=== PATIENT | female | born 1975 | race African-American/Black ===

== ENCOUNTER 2024-11-03 11:51 | Emergency (ER) | payer SELFPAY ==
--- NOTE | ~2024-11-03 | US_ITS ---
EXAMINATION: US LOWER EXTREMITY VEINS BILATERAL HISTORY: hx clots, b/l calf pain COMPARISON: There are no prior studies available for comparison. TECHNIQUE: Duplex and color Doppler sonographic examination of the deep venous system of the bilateral lower extremities was performed. FINDINGS: The right common femoral, superficial femoral, and popliteal veins are patent demonstrating normal compressibility, spontaneous flow, and augmentation. There is a normal color and spectral Doppler waveform appearance of the visualized deep venous system above the knee. The posterior tibial and peroneal veins are patent. The left common femoral, superficial femoral, and popliteal veins are patent demonstrating normal compressibility, spontaneous flow, and augmentation. There is a normal color and spectral Doppler waveform appearance of the visualized deep venous system above the knee. The posterior tibial and peroneal veins are patent. US/US venous duplex LE BI IMPRESSION: No evidence of acute DVT in the bilateral lower extremities. Electronically signed by: Lalito Major MD 11/03/2024 01:47 PM EDT
[2024-11-03 12:10] VITALS: BP 188/102; PULSE 70; RESP 18; TEMP 36.2; O2SAT 98; BMI 30.2
--- NOTE | 2024-11-03 12:14 | ED.GENADULT ---
HPI - General Adult General Chief complaint: General Medical Stated complaint: pain in both calfs quest dvts Time Seen by Provider: 11/03/24 15:57 History of Present Illness ED Provider: ELLIOTT FAYE MD HPI narrative: This is a 49-year-old female who endorses mild dyspnea on exertion without chest pain. No cough hemoptysis or fever does not feel ill. Denies nausea vomiting. 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 She subjectively complains of calf pain but no swelling. No history of heart failure or chronic pulmonary disease described to me Related Data Allergies Allergy/AdvReac Type Severity Reaction Status Date / Time sulfamethoxazole (From AdvReac Itching Verified 11/03/24 12:13 Bactrim) trimethoprim (From Bactrim) AdvReac Itching Verified 11/03/24 12:13 PMFSH Social History Social History Smoked in Last 30 Days: No Use of substances other than those prescribed or required for medical reasons: No Advance Directives: No Advance Directives Information Provided: No Do you have a plan to hurt others: No Plan Patient : No Physical Exam ED Vital Signs: Vital Signs - 24 hr 11/03/24 12:10 11/03/24 16:55 Temperature 97.2 F 98.7 F Pulse Rate 70 66 Respiratory Rate 18 16 Blood Pressure 188/102 H 160/88 H Pulse Oximetry 98 99 Oxygen Delivery Method Room Air Room Air BMI result Body Mass Index 30.2 EXAM: Gen: Alert, awake, well appearing, well hydrated. Head: Atraumatic Eyes: Anicteric, Normal conjunctiva. ENT: Moist mucosa, no pallor. ? Neck: Supple. Skin: ?No observable rash or bruising on exposed or examined skin Respiratory: Breathing comfortably, No distress.Clear to auscultation bilaterally, symmetric chest expansion, No wheeze, rales, ronchi. Cardiovascular: Regular rate and rhythm. No murmurs or rub. Well perfused periphery, warm extremities. No edema. ? Abdominal: No focal tenderness. Soft, no objective distension. No palpable masses or obvious organomegaly. ?No guarding, no rebound tenderness or other peritoneal findings. : No flank tenderness. Neuro: Alert. Gross movement of all extremities intact. ? Psych: Calm. Cooperative. MSK: No grossly visible deformity. Vital signs: See flowsheet Course Course Course Narrative: 11/03/24 1216 CHANELLE Houser This is a Rapid Medical Examination (RME) performed by Cheryl Sales PA-C in triage. Full HPI, ROS, assessment and treatment plan per primary provider in the Main ED. Hx: 49 yo F hx of DVTs, here for eval of bilateral calf pain x2 weeks. on AC x6 mos, no longer on thinners. no injury/trauma. now short of breath. Plan: labs, duplex, ekg Medical Decision Making Medical Decision Making MDM Narrative: Medical Decision Makin-year-old female with history of DVT/PE concerned today for PE given acute on chronic shortness of breath on exertion. She denies chest pain on exertion no recent cough or hemoptysis. No longer on anticoagulation. Unclear whether there was a provoked DVT/PE in the past she is not sure of that history. She looks well clinically vital signs stable. Moderate hypertension without symptomatology to suggest end-organ damage. Reassuring ECG and examination. She looks well and is comfortable no hypoxia or respiratory distress or abnormal lung sounds. No objective signs to suggest DVT and her calf pain is bilateral. Unclear etiology at this time given the reassuring examination and studies. No indication for pulmonary imaging given the examination and history which is vague and mild exertional only. Preliminary Favored Differential Diagnosis: Deconditioning, effusion, viral URI, PE, among additional considered etiologies Testing Interpreted Independently: ECG: Underlying artifact. Sinus rhythm rate 68 QTC 401. Normal intervals and axis no ischemic changes Radiology or Lab testing Results Reviewed: Labs reassuring including negative troponin. No anginal equivalents. Doppler negative for DVT. Consults: Not Applicable Independent Historians/External Chart Reviews: Not Applicable Social Determinants of Health Impacting MDM/Planning: Not Applicable Lab Data 11/03/24 14:05 11/03/24 14:05 Labs: Lab Results 11/03/24 11/03/24 Range/Units 14:05 16:23 WBC 6.1 (4.8-10.8) X10*3/uL RBC 4.07 L (4.20-5.50) X10*6/uL Hgb 11.4 L (12.0-16.0) g/dl Hct 35.4 L (37.0-47.0) % MCV 87.0 (80.0-98.0) fL MCH 28.0 (27.0-33.0) pg MCHC 32.2 (31.0-35.0) g/dl RDW 14.8 (11.0-16.0) % Plt Count 295 (160-400) X10*3/uL MPV 9.5 (9.4-12.3) fL Immature Gran % (Auto) 0.5 H (0.0-0.4) % Neut % (Auto) 57.4 (45-73) % Lymph % (Auto) 30.0 (20-40) % [place] % (Auto) 10.8 (2-11) % Eos % (Auto) 1.0 (0-4) % Baso % (Auto) 0.3 (0-2) % Lymph # (Auto) 1.8 (1.2-4.9) X10*3/uL [place] # (Auto) 0.7 (0.1-1.2) X10*3/uL Eos # (Auto) 0.1 (0.0-0.4) X10*3/uL Baso # (Auto) 0.0 (0.0-0.2) X10*3/uL Abs Immat Gran (auto) 0.03 (0.00-0.03) X10*3/uL Absolute Neuts (auto) 3.5 (2.0-8.3) x10*3/uL Absolute Nucleated RBC 0.000 (0.0-0.012) X10*3/uL Nucleated RBC % (auto) 0.0 (0.0-0.2) /100WBC D-Dimer High Sensitivty 227 NG/ML Sodium 140 (135-145) mmol/L Potassium 3.9 (3.3-5.1) mmol/L Chloride 111 H (96-108) mmol/L Carbon Dioxide 24 (22-29) mmol/L Anion Gap 9 L (12-20) BUN 7 L (9-16) mg/dL Creatinine 0.78 (0.5-1.4) mg/dL Estim Creat Clear Calc 83.5 Estimated GFR > 60 Random Glucose 98 (60-115) mg/dL Calcium 8.5 (8.4-10.2) mg/dL Magnesium 2.0 (1.6-2.6) mg/dL Total Bilirubin 0.3 (0.0-1.0) mg/dL AST 20 (5-31) U/L ALT 17 (0-31) U/L Alkaline Phosphatase 59 (39-117) U/L Troponin I High Sens < 2.7 (<3.5-17.0) ng/L Total Protein 7.1 (6.5-8.0) g/dL Albumin 4.1 (3.5-5.0) g/dL Discharge Plan Discharge Clinical Impression: SOB (shortness of breath) on exertion Patient Disposition: Home, Self-Care Additional Instructions: DISCHARGE DIAGNOSES: Shortness of breath on exertion unclear cause reassuring testing and workup in the emergency department HISTORY OF PRESENTATION: Shortness of breath on exertion for 2 weeks. No cough no fever no chest pain EMERGENCY DEPARTMENT COURSE,TESTS, TREATMENTS: While in the ED today in the emergency department he had lab work that was reassuring. ECG that was reassuring. We tested blood clotting test to evaluate for possible lag or lung blood clot this was negative. You had an ultrasound your legs at excluded blood clot in the legs DISCHARGE MEDICATIONS: ?[We have made no changes to your regular medication regimen] FOLLOW-UP: ?Call your primary or general physician soon as possible to discuss your symptoms, your ED visit and to discuss follow up plans Call your primary doctor tomorrow 1st thing to discuss your symptoms. INSTRUCTIONS ?& RETURN PRECAUTIONS: If any symptoms change first call your primary physician, if it is after-hours your primary doctors office should have a provider auction block clerk you can speak with. If the symptoms are severe or very concerning to you then call 911 or return to the ED. Return for chest pain, coughing up blood, severe worsening symptoms as we discussed Elliott Faye MD Emergency Physician [facility] Interventions: ED Discharge Assessment Last Done: 11/03/24 17:21 Discharge Date/Time: 11/03/24 17:22 Print Language: Icelandic
--- NOTE | 2024-11-03 12:15 | ECG_ITS ---
Test Reason : SOB Blood Pressure : */* mmHG Vent. Rate : 68 BPM Atrial Rate : 68 BPM P-R Int : 162 ms QRS Dur : 66 ms QT Int : 378 ms P-R-T Axes : 8 -21 -1 degrees QTcB Int : 401 ms Normal sinus rhythm Cannot rule out Anterior infarct , age undetermined ; could be related to body habitus. Abnormal ECG No previous ECGs available Referred By: Bonnie Sales Electronically Signed By: JAQUELIN CHRISTIE
--- NOTE | 2024-11-03 13:47 | MHC.EDTECH ---
delay on EKG and blood patient was in ultrasound
[2024-11-03 14:10] LABS: MANUAL DIFF FLAG NO
[2024-11-03 14:14] LABS: Hematocrit 35.4 % (37.0-47.0); Hemoglobin 11.4 g/dl (12.0-16.0); Imm Gran Abs Auto 0.03 X10*3/uL (0.00-0.03); Imm Gran Pct Auto 0.5 % (0.0-0.4); Lymphocytes Absolute Auto 1.8 X10*3/uL (1.2-4.9); Mean Corpuscular HGB Conc 32.2 g/dl (31.0-35.0); Mean Corpuscular Hemoglobin 28.0 pg (27.0-33.0); Mean Corpuscular Volume 87.0 fL (80.0-98.0); NRBC Abs Auto 0.000 X10*3/uL (0.0-0.012); NRBC Pct Auto 0.0 /100WBC (0.0-0.2); Platelet Count 295 X10*3/uL (160-400); Red Blood Count 4.07 X10*6/uL (4.20-5.50); White Blood Count 6.1 X10*3/uL (4.8-10.8)
[2024-11-03 14:29] LABS: Alanine Aminotransferase 17 U/L (0-31); Albumin Level 4.1 g/dL (3.5-5.0); Alkaline Phosphatase 59 U/L (39-117); Anion Gap 9 (12-20); Aspartate Amino Transferase 20 U/L (5-31); Blood Urea Nitrogen 7 mg/dL (9-16); Calcium 8.5 mg/dL (8.4-10.2); Carbon Dioxide 24 mmol/L (22-29); Chloride 111 mmol/L (96-108); Creatinine Clr Calc Pharmacy 83.5; Estimated Glomerular Filt Rate > 60; Magnesium 2.0 mg/dL (1.6-2.6); Potassium 3.9 mmol/L (3.3-5.1); Sodium 140 mmol/L (135-145); Total Protein 7.1 g/dL (6.5-8.0)
[2024-11-03 14:37] LABS: Troponin-I High Sensitivity < 2.7 ng/L (<3.5-17.0)
[2024-11-03 16:43] LABS: D Dimer High Sensitivity 227 NG/ML
[2024-11-03 16:55] VITALS: BP 160/88; PULSE 66; RESP 16; TEMP 37.1; O2SAT 99
--- OUTSIDE RECORDS SUMMARY | 2024-11-03 16:59 | XMS_ITS | Clinical Summary ---
Author Organization [facility] Address [address] [place] [address] Care Team Providers Care Well Treatment Offsider Name Role Phone Yumiko Pagan PA-C Primary Care Provider [phone] Source Comments PLEASE NOTE, if this patient is a minor, it may be UNLAWFUL to discuss sensitive information that is contained in these records (such as FAMILY PLANNING, MENTAL HEALTH or SUBSTANCE ABUSE) with the minor patient's parent or other person without the patient's specific authorization.[facility] Allergies Active Allergy Reactions Criticality Noted Date Comments Sulfamethoxazole-Trimethoprim Itching 2015 Medications fluticasone (FLONASE) 50 mcg/actuation nasal sprayIndications :Encounter for IUD removal,Vaginal pain Place 1 [place] into the nostril(s) once daily. Active FEXOFENADINE HCL (CRISELDA ALLERGY ORAL)Indications :Encounter for IUD removal,Vaginal pain Take by mouth. Active naproxen (NAPROSYN) 500 mg tablet 1 07/12/2015 Active Active Problems Problem Noted Date Diagnosed Date Pap smear for cervical cancer screening 06/16/19 16 Overview (07/21/2015): Gc/ct neg 06/09/15 Pap NIl with ECc HPV neg, + clue, tx given at appt 06/09/15 NEXt pap 202001/11/11 NIL with ECC 01/16/12: Nil with ECc hpv neg 12/23/09 NIL with ECC IUD (intrauterine device) in place 06/09/2015 Overview (08/13/2015): Seen at [facility]:08/06/15 no string ref to silvio for u/s and removal Inserted 12/2009 mirena No string visible, ref to silvio for removal; Pre-eclampsia ([facility]) Overview (07/21/2015): had a grand mal sz Allergic state Overview (07/21/2015): flonase and criselda help Ectopic ([facility]) Resolved Problems Problem Noted Date Diagnosed Date Resolved Date BV (bacterial vaginosis) 06/09/2015 Overview (06/09/2015): tx with metrogel Immunizations Immunization Administration Dates Next Due TDAP 07/07/2013 Family History Medical History Relation Name Comments Hypertension Maternal Grandmother clot Kidney disease Maternal Grandmother clot Diabetes Mother Hypertension Mother Kidney disease Mother Alzheimer's Disease Paternal Grandfather Alzheimer's Disease Paternal Grandmother Hypertension Sister 1 vertigo Relation Name Status Comments Brother well Alive Father well Alive Maternal Grandfather killed Maternal Grandmother clot Mother Alive Paternal Grandfather Alive Paternal Grandmother Alive Sister 1 vertigo Alive Sister 2 well Alive Social History Tobacco Use Types Packs/Day Years Used Date Smoking Tobacco: Former Cigarettes Alcohol Use Standard Drinks/Week Comments No 0 (1 standard drink = 0.6 oz pur e alcohol) Social Connections Answer Date Recorded Social Connections and Isolation 0 12/15/2018 Financial Resource Strain Answer Date R ecorded Financial Resource Strain 0 2018 Stress Answer Date Recorded Stress 0 12/15/2018 Physical Activity Answer Date Recorded Physical Activity 0 12/15/2018 Food Insecurity Answer Date Recorded Food 0 12/15/2018 Transportation Needs Answer Date Record ed Transportation 0 12/15/2018 Housing Stability Answer Date Recorded Housing 0 12/15/2018 Safety and Environment Answer Date Jose Angel rded Safety 0 12/15/2018 Utilities Answer Date Recorded Utilities 0 12/15/2018 Employment Answer Date Recorded Employment 0 12/15/2018 Comments Unknown Sex and Gender Information Value Date Recorded Sex Assigned at Not on file Legal Sex Female 8:03 AM PST Gender Identity Not on file Sexual Orientation Not on file 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 on file Not on file Not on file Last Filed Vital Signs Vital Sign Reading Time Taken Comments Blood Pressure 112/82 07/21/2015 3:24 PM EDT Pulse 68 07/21/2015 3:24 PM EDT Temperature 37.1 C (98.7 F) 07/21/2015 3:24 PM EDT Respiratory Rate 12 07/21/2015 3:24 PM EDT Oxygen Saturation - - Inhaled Oxygen Concentration - - Weight 78.5 kg (173 lb) 07/21/2015 3:24 PM EDT Height - - Body Mass Index - - Plan of Treatment Not on file Insurance [employer] NET [employer] Member Subscriber Plan / Payer ( fective 2015-Present) Name:Nori Gill Relation to Subscriber:Self Name:Nori Gill Payer ID:[id number] Group ID:Not on file Type:Medicaid Address: [facility] [address] [address] [place] [address] Care Teams Well Treatment Offsider Relationship Specialty Start Date End Date Yumiko Pagan PA-C [address] [place] [address] PCP - General 06/18/18
--- OUTSIDE RECORDS SUMMARY | 2024-11-03 16:59 | XMS_ITS | Clinical Summary ---
Author Organization [facility] Address [address] [place] [address] Care Team Providers Care Shoe Laster Name Role Phone Brynn Agarwal MD Primary Care Provider [phone] Allergies Active Allergy Reactions Criticality Noted Date Comments Sulfamethoxazole-Trimethoprim Itching 2022 Medications Medication Sig Dispensed Refills Start Date End Date Status amLODIPine (NORVASC) tablet 2.5 mg Take 1 tablet (2.5 mg total) by mouth daily. 0 Active Active Problems No known active problems Social History Tobacco Use Types Packs/Day Years Used Date Smoking Tobacco: Former Cigarettes Smokeless Tobacco: Never Tobacco Cessation:Counseling Given: Not Answered Alcohol Use Standard Drinks/Week Comments Not Currently 0 (1 standard drink = 0.6 oz pur e alcohol) Sex and Gender Information Value Date Recorded Sex Assigned at Not on file Gender Identity Not on file Sexual Orientation Not on file Job Start Date Occupation Industry Not on file Not on file Not on file Last Filed Vital Signs Vital Sign Reading Time Taken Comments Blood Pressure 126/80 11/08/2022 11:27 AM EDT Pulse 71 11/08/2022 11:27 AM EDT Temperature 36.8 C (98.3 F) 11/08/2022 11:27 AM EDT Respiratory Rate - - Oxygen Saturation 100% 11/08/2022 11:27 AM EDT Inhaled Oxygen Concentration - - Weight 82.1 kg (181 lb) 11/08/2022 11:27 AM EDT Height - - Body Mass Index - - Plan of Treatment Health Maintenance Due Date Last Done Comments Hepatitis B Vaccines (1 of 3 - 3-dose series) 1976 Hepatitis C Screening 1976 Depression Screening 1988 Preventative Health Evaluation 1994 Cervical Cancer Screening (Pap Smear) 1997 Colon Cancer Screening (Colonoscopy) 2021 COVID-19 Vaccine (3 - 2023-2 5 season) 2023 06/20/2021, 05/16/2021 Influenza Vaccine (#1) 2024 DTap / Tdap / Td (3 - Td or Tdap) 03/02/2032 03/02/2022, 07/07/2013 Pneumococcal Vaccine Aged Out No long er eligible based on patient's age to complete this topic RSV Ped < 20 months Aged Out No longe r eligible based on patient's age to complete this topic Care Teams Shoe Laster Relationship Specialty Start Date End Date Brynn Agarwal MD PCP - General Internal Medicine 02/03/22
[2024-11-03 17:21] VITALS: BP 160/88; PULSE 66; RESP 16; TEMP 37.1; O2SAT 99
== END 2024-11-03 17:22 | disposition home or self-care (01) ==
PROVIDERS: Physician Assistant Medical; Emergency Provider Emergency Medicine; PCP Internal Medicine
DX: R06.02 Shortness of breath (principal); R06.00 Dyspnea, unspecified; M79.662 Pain in left lower leg; M79.661 Pain in right lower leg; Z86.718 Personal history of other venous thrombosis and embolism; Z86.711 Personal history of pulmonary embolism
CPT/HCPCS: 36415; 80053; 83735; 84484; 85025; 85379; 93005; 93970; 99284

== ENCOUNTER → 2024-11-03 12:15 | Outpatient (BNV) | payer SELFPAY | PROVIDERS: Emergency Provider Emergency Medicine; PCP Internal Medicine; Visit Provider Internal Medicine | DX: R94.31 Abnormal electrocardiogram [ECG] [EKG] (principal); R06.02 Shortness of breath | CPT/HCPCS: 93010 ==

== ENCOUNTER → 2024-11-03 12:18 | Outpatient (BNV) | payer SELFPAY | PROVIDERS: Visit Provider Radiology Diagnostic Radiology | DX: M79.661 Pain in right lower leg (principal); M79.662 Pain in left lower leg | CPT/HCPCS: 93970 ==

== ENCOUNTER 2025-03-04 08:18 | Emergency (ER) | payer MEDICAID, SELFPAY ==
--- NOTE | ~2025-03-04 | XR_ITS ---
EXAMINATION: XR ANKLE, LEFT CLINICAL INFORMATION: pain and swelling x 4 days lat ank COMPARISON: None available. TECHNIQUE: AP, lateral, and mortise views of the left ankle. FINDINGS: No visible acute fracture, dislocation or suspicious bony lesion. Ankle mortise is congruent. No talar dome OCD. Small distal tibial marginal spurring. Small plantar calcaneal spur. Prominent soft tissue tissue swelling. XR/XR ankle LT min 3V IMPRESSION: No radiographic evidence of acute osseous findings. Soft tissue swelling. Degenerative changes as above. Electronically signed by: Mohan Haas MD 03/04/2025 08:49 AM MATILDA
[2025-03-04 08:23] VITALS: BP 152/82; PULSE 68; RESP 16; TEMP 37; O2SAT 97; BMI 36.2
--- NOTE | 2025-03-04 08:31 | ED_ITS ---
HPI - Extremity Problem General Chief complaint: Extremity Problem Stated complaint: Injury Time Seen by Provider: 03/04/25 08:23 Source: patient Mode of arrival: ambulatory Limitations: no limitations History of Present Illness ED Provider: Toya Ramirez PA-C HPI Narrative: Nori is a 49-year-old female, presents with acute swelling and pain of the left ankle that began on Sunday.. She first noticed aching pain in the ankle while at work, followed by visible swelling, but denies any known injuries or trauma. Symptoms intensified on Sunday to the point that she ?couldn?t stand the pain.? She denies any trauma or twisting injury. This is a recurrent problem that has always involved the same (right) ankle, but the current episode is the worst to date. She reports mild aching extending into the calf the other day but no focal calf tenderness. No pain with palpation of the toes and able to wiggle without pain in toes foot or calf. Mild tenderness is present over the ankle bon es. She is able to wiggle her toes. Home measures include an [id number] ankle wrap from [facility], icing, and alternating doses of ibuprofen. She attempted to work this morning but was concerned about prolonged walking and standing which makes it worse. No sob or cp. No prior VTE. Related Data Previous Rx's ?Medication ?Instructions ?Recorded naproxen 250 mg tablet See Rx Instructions .Route 1 05/04/24 .COMPLEX #21 tabs Allergies Allergy/AdvReac Type Severity Reaction Status Date / Time sulfamethoxazole (From AdvReac Itching Verified 03/04/25 08:25 Bactrim) trimethoprim (From Bactrim) AdvReac Itching Verified 03/04/25 08:25 Review of Systems Review of Systems: Yes all other systems are reviewed and are negative PMFSH Past Medical History Attestation statement: The following information was validated with the patient. Source: old records reviewed and nursing notes reviewed Social History Social History Advance Directives: No Advance Directives Information Provided: No Physical Exam Exam: Exam: General: Appears in no acute distress, appears well-nourished body habitus is obese, appears stated age. No septic or ill-appearing. Vitals were reviewed as normal, and PMH/Social and Surgical hx was reviewed, including allergies and current medications. Head: Normocephalic, no obvious trauma or skin lesions noted. Eyes: EOMI, conjunctiva and sclera clear ENMT: nose and lips appear normal Neck: trachea midline Cardiovascular: peripheral perfusion normal, Regular heart rate Respiratory: no respiratory distress Abdomen: non-distended Extremities: warm and moving without difficulty with exception to Right ankle: Diffuse swelling without pronounced erythema or warmth. Mild tenderness to palpation over the malleoli and lateral. No pain with palpation of toes. Full toe wiggle intact. No instability - Left ankle: Examined for comparison; n o swelling or symptoms reported. Psych: Cooperative Neuro: Alert and oriented. Vital Signs: Vital Signs: Last Vital Signs Temp 98.6 F 03/04/25 09:20 Pulse 68 03/04/25 09:20 Resp 16 03/04/25 09:20 BP 152/82 H 03/04/25 09:20 Pulse Ox 97 03/04/25 09:20 O2 Del Method Room Air 03/04/25 09:20 BMI result Body Mass Index 36.2 Medical Decision Making Medical Decision Making MDM Narrative: Right ankle X-ray ordered during the visit to rule out fracture or other osseous pathology. Right ankle swelling and pain, most consistent with inflammatory arthritis (pseudogout vs gout); fracture unlikely but X-ray pending. Plan: * Obtain right ankle X-ray today. * If X-ray is negative, presumptive diagnosis will be pseudogout; treat with anti-inflammatory medication. * Encourage continued use of ankle compression wrap. * Advise elevation and icing of the affected ankle as tolerated. No evidence of NVC. No tendon rupture or soft tissue skin infection. I did not feel further work up was indicated as her presentation is most consistent with inflammatory condition and can be managed outpatient at this time. Return precautions discussed. Differential Diagnosis Differential Diagnoses: The differential diagnosis associated with the presentation includes septic arthritis- not likely no fever, erythema, pain out of proportion or deficit of ROM, labs deferred pseudogout- likely, recurrent no erythema fracture/dislocation- no trauma, but ordered to rule out patho fx gout- no erythema or sig ttp cellulitis- no erythema VTE: wells score for VTE is 0. unlikely no U/S ordered. Admission/Observation Consideration of admission/observation: Escalation of care including admission/observation considered Patient would have been admitted to the hospital had her work up had any findings where hospital admission was appropriate and her clinical presentation warranted hospital admission. Independent Interpretation I performed an independent interpretation of an: Plain X-Ray Interpretation: no fracture or dislocation, arthritic changes anterior tibia lat view only Radiology Impression Discussion of test interpretation with radiology: I have reviewed the radiologist's reading. Radiologist Impression: IMPRESSION: No radiographic evidence of acute osseous findings. Soft tissue swelling. Degenerative changes as above. Tests considered The following testing was considered but not selected: See MDM Prescription Management I considered prescription management with: Pain Medication Chronic Conditions Patient?s care impacted by: Other (obesity) Social Determinants Patient?s care significantly limited by Social Determinants of Health including: Other Social Determinant of Health Discharge Plan Discharge Clinical Impression: Pseudogout Patient Disposition: Home, Self-Care Additional Instructions: You were seen in the emergency room today for atraumatic left ankle swelling. No indication of infection, fracture, dislocation or neurovascular compromise. You diagnosis is most consistent with pseudogout. Pseudogout Discharge Summary Summary of Your Visit and Diagnosis You came to the clinic with sudden swelling and pain in your right ankle. After an X-ray showed no broken bones, your symptoms were most consistent with pseudogout, a type of joint inflammation. What Is Pseudogout? Pseudogout happens when tiny calcium crystals build up in a joint, causing it to become swollen, painful, and sometimes stiff. These crystals irritate the joint, leading to inflammation. Pseudogout most often affects older adults and can come and go, sometimes flaring up without warning. Medication Instructions To help with pain and swelling, you may use an anti-inflammatory medicine. If you notice stomach upset or diarrhea, stop the medication and let your doctor know. Do not take more than the recommended dose. Home Care - Compression: Continue using an ankle wrap to help reduce swelling. - Elevation: Keep your ankle raised above the level of your heart when sitting or lying down. - Icing: Apply an ice pack to your ankle for 15?20 minutes every few hours to help with pain and swelling. Warning Signs?When to Seek Urgent Care Call your doctor or go to the emergency room if you notice: - Increasing redness, warmth, or severe pain in the ankle - Fever or chills - Trouble moving your toes or foot - Sudden swelling in your calf or shortness of breath These could be signs of infection or a blood clot and need quick attention. Follow-Up Recommendations Schedule a follow-up appointment within 1?2 weeks with primary care to check your progress and discuss further treatment if needed. If your symptoms do not improve in a few days or get worse, contact your healthcare provider. Sometimes, more tests or different medications may be needed If you have repeated attacks, your doctor may discuss ways to prevent future flares. If you have any questions or concerns, please return to emergency department. Prescriptions: New naproxen 250 mg tablet See Rx Instructions .ROUTE .COMPLEX Qty: 21 0RF Rx Instructions: Take three 250 mg tablets PO day 1 at once. Take one 250 mg tablet TID for days 2-8. May discontinue is pain and swelling subsides. Referrals: [facility] [Provider Group] Clinical Impression: Johnna Toney MD [Primary Care Provider, Internal Medicine] Stand Alone Forms: Work/School Release Interventions: ED Discharge Assessment Last Done: 03/04/25 09:20 Discharge Date/Time: 03/04/25 09:21 Print Language: Mongolian
--- OUTSIDE RECORDS SUMMARY | 2025-03-04 09:18 | XMS_ITS | Clinical Summary ---
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 Phone Brynn Agarwal MD Primary Care Provider [phone] Allergies Active Allergy Reactions Criticality Noted Date [...] Screening (Colonoscopy) 2021 COVID-19 Vaccine (3 - 2024-2 6 season) 2024 06/20/2021, 05/16/2021 Influenza Vaccine (#1) 2024 DTap / Tdap / Td (3 - Td or Tdap) 03/02/2032 03/02/2022, 07/07/2013 Pneumococcal Vaccine Aged Out No long er eligible based on patient's age to complete this topic RSV Ped < 20 months Aged Out No longe r eligible based on patient's age to complete this topic Care Teams Railroad Firer/Fireman Relationship Specialty Start Date End Date Brynn Agarwal MD PCP - General Internal Medicine 02/03/22
--- OUTSIDE RECORDS SUMMARY | 2025-03-04 09:18 | XMS_ITS | Clinical Summary ---
Author Organization [address] Address [address] [place] [phone] Phone Care Team Providers Care Competitive Athlete Name Role Phone Brynn Agarwal MD Primary Care Provider [phone] Allergies Active Allergy Reactions Criticality Noted Date Comments Sulfamethoxazole-Trimethoprim Itching 2022 Medications estradioL (ESTRACE) 1 mg tablet Take one tab daily 01/15/2024 Active amLODIPine (NORVASC) 2.5 mg tablet Take 1 Tablet by mouth 2 times daily. 09/07/2022 Active fexofenadine (FRANNY) 180 mg tablet Take 1 Tablet by mouth daily. 12/30/2021 Active fluticasone propionate (FLONASE) 50 mcg/actuation nasal spray 2 Sprays by Nasal route daily. 12/30/2021 Active famotidine (PEPCID) 20 mg tablet Take 1 Tab by mouth 2 times daily. 08/12/2019 Active docusate sodium (COLACE) 100 mg capsule Take 1 Capsule by mouth 2 times daily. 12/30/2021 Active MULTIVITAMIN ORAL 1 po qd Active cyclobenzaprine (FLEXERIL) 10 mg tablet Take 1 tablet (10 mg total) by mouth 3 (three) times a day if needed for muscle spasms for up to 5 days. 15 each 07/10/2024 Active fezolinetant 45 mg tablet Take 45 mg by mouth 1 (one) time each day. 90 tablet 07/29/2024 Active Active Problems Problem Noted Date Diagnosed Date Retained foreign body of vagina 07/25/2022 Overview (03/24/2024): Last Assessment & Plan: Explained no evidence of retained mesh today. I recommended she not use these in the future due to risk of introducing infection. She agreed. IUD threads lost 04/04/2022 Overview (03/24/2024): Last Assessment & Plan: US ordered to ensure in place. Also to ensure no migration. Patient counseled not to rely on for contraception until confirmed. She is not sexually active. I also explained that her bleeding like this can be normal with Mirena IUD in place. DVT (deep venous thrombosis) (CMS/[facility] V24, CMS/[facility] V28) 01/31/2022 HTN (hypertension) 01/31/2022 Pulmonary embolism (CMS/[facility] V24, CMS/[facility] V28) Overview (03/24/2024): 01/18/2022 Microscopic hematuria 09/07/2020 Overview (03/24/2024): Last Assessment & Plan: Culture sent. Other constipation 07/09/2019 Uterine leiomyoma 07/09/2019 Impingement syndrome, shoulder 05/12/2010 Obesity 05/12/2010 Immunizations Immunization Administration Dates Next Due Tdap Tetanus diptheria acell ular pertussis (Boostrix; Adacel) 7yo and older 07/07/2013 Surgical History Surgery Date Site/Laterality Comments SECTION PROCEDURE: HISTORICAL DELIVERY; COMMENT: x2 HERNIA REPAIR 11/27/2017 PROCEDURE: REPAIR UMBILICAL HERNIA; COMMENT: Dr. Ledezma COLONOSCOPY 08/18/2019 PROCEDURE: HISTORICAL COLONOSCOPY; COMMENT: normal. UPPER GASTROINTESTINAL ENDOSCOPY 08/18/2019 PROCEDURE: [facility] UPPER GI ENDOSCOPY PERFORMED; COMMENT: normal; currently on treatment with H2 blockers as needed. Medical History Medical History Date Comments IUD (intrauterine device) in place 05/09/2016 DX:IUD (intrauterine device) in place; COMMENT: Mirena DVT (deep venous thrombosis) (CMS/[facility] V24, CMS/[facility] V28) 2021 left calf Pulmonary embolism ([facility] V24, [facility] V28) 2021 Family History Medical History Relation Name Comments Diabetes Maternal Grandmother 3 strok es Diabetes Mother dialysis Hypertension Mother Diabetes Mother's side aunts Other: cardiac Other cousin-deceas ed Diabetes Paternal Grandmother stroke x2 Hypertension Paternal Grandmother Breast cancer Neg Hx Cancer of Small Bowel Neg Hx Colon cancer Neg Hx Kidney cancer Neg Hx Ovarian cancer Neg Hx Pancreatic cancer Neg Hx Stomach cancer Neg Hx Uterine cancer Neg Hx Relation Name Status Comments Father Alive Maternal Grandmother (Age 67) ht n, dm, dvt Mother Alive htn, dm, dialys is Mother's side Other Paternal Grandmother Sister Alive htn Social History Tobacco Use Types Packs/Day Years Used Date Smoking Tobacco: Former Cigarettes 0.3 Q uit: 06/15/2009 Smokeless Tobacco: Never Tobacco Cessation:Counseling Given: Not Answered Alcohol Use Standard Drinks/Week Comments No 0 (1 standard drink = 0.6 oz pur e alcohol) Comments No Sex and Gender Information Value Date Recorded Sex Assigned at Not on file Legal Sex Female 5:48 PM EST Gender Identity Not on file Sexual Orientation Not on file Obstetrics History Para Term AB IAB SAB Ectopic Multiple Livin g Live Births 4 3 3 0 1 0 3 3 Date Outcome GA Total Labor Labor/2nd/3rd Weight Sex Type Anes PTL Peggy A1 A5 Name Clin Term CS-Un spec Living Term Living Term CS-Un spec Living Ectopic Neonat al Demise Last Filed Vital Signs Vital Sign Reading Time Taken Comments Blood Pressure 120/88 07/10/2024 10:49 AM EDT Pulse 68 07/10/2024 10:49 AM EDT Temperature 36.5 C (97.7 F) 07/10/2024 10:49 AM EDT Respiratory Rate 16 07/10/2024 10:49 AM EDT Oxygen Saturation - - Inhaled Oxygen Concentration - - Weight 90.3 kg (199 lb) 07/10/2024 10:49 AM EDT Height 151.1 cm (4' 11.5 ) 07/10/2024 10:49 AM E DT Body Mass Index 39.52 07/10/2024 10:49 AM EDT Plan of Treatment Health Maintenance Due Date Last Done Comments Hepatitis B Vaccines (1 of 3 - 19+ 3-dose series) 1995 Social Influencers of Health Screening 04/01/2022 Hypertension/CHF/CAD Annual BMP Blood Test 12/30/2022 12/30/2021 Depression Screening 04/23/2024 COVID-19 Vaccine (3 - season) 2024 06/20/2021, 05/16/2021 Influenza Vaccine (#1) 2024 Cervical Cancer Screening: HPV 09/02/2025 09/02/2020 Breast Cancer Screening 12/21/2025 12/22/19, 12/22/2023, 10/30/2022, Additional history exists Cholesterol Screening (Lipid Panel) 12/30/2026 12/30/2021 Colorectal Cancer Screening: FIT-DNA (Cologuard) 02/23/2027 02/24/2024, 02/24/2024 DTaP,Tdap,and Td Vaccines (3 - Td or Tdap) 03/02/2032 03/02/2022, 07/07/2013 RSV Immunization Adult Patients (1 - 1-dose 75+ series) 2051 HIV Screening Completed 12/29/2022 Hepatitis C Screening Completed 12/29/2022 HIB Vaccines Aged Out No longer eligi ble based on patient's age to complete this topic HPV Vaccines Aged Out No longer eligi ble based on patient's age to complete this topic Hepatitis A Vaccines Aged Out No long er eligible based on patient's age to complete this topic IPV Vaccines Aged Out No longer eligi ble based on patient's age to complete this topic MMR Vaccines Aged Out No longer eligi ble based on patient's age to complete this topic Meningococcal ACWY Vaccine Aged Out N o longer eligible based on patient's age to complete this topic Meningococcal B Vaccine Aged Out No l onger eligible based on patient's age to complete this topic Pneumococcal Vaccine: Pediatrics (0 to 5 Years) and At-Risk Patients (6 to 49 Years) Aged Out No longer eligible based on patient's age to complete this topic RSV Immunization Patients Under 20 months Aged Out No longer eligible based on patient's age to complete this topic Varicella Vaccines Aged Out No longer eligible based on patient's age to complete this topic Procedures Procedure Name Priority Date/Time Associated Diagnosis Comments SCREENING MAMMOGRAPHY BI 2-VIEW BREAST INC CAD Routine 12/22/2023 8:48 AM EDT Encounter for screening mammogram for malignant neoplasm of breast HEPATITIS C SCREENING Routine 12/29/2022 HIV SCREENING Routine 12/29/2022 ANNUAL BMP BLOOD TEST Routine 12/30/2021 LIPID PANEL Routine 12/30/2021 HPV Routine 09/02/2020 from Last 3 Months or Most Recently Relevant to Health Maintenance Results * SCREENING MAMMOGRAPHY BI 2-VIEW BREAST INC CAD (12/22/2023 8:48 AM EDT) Anatomical Region Laterality Modality Radiographic Sydni ging 10/30/2022 1:43 PM EDT Narrative 12/25/2023 7:06 PM EDT This is a summary report. The complete report is available in the patient's medical record. If you cannot access the medical record, please contact the sending organization for a detailed fax or copy. Exam: Screening mammogram Findings: Digital bilateral full-field screening mammography is performed with tomosynthesis and interpreted with the aid of computer-aided detection. Comparison is made with 10/30/2022 and as far back as 10/19/2020. Breast parenchyma is composed of scattered fibroglandular densities. No new suspicious mass, architectural distortion, or suspicious calcifications. Impression: No mammographic evidence of malignancy. BI-RADS 1 - negative Procedure Note Lacey Harris MD - 02/06/2024 This is a summary report. The complete report is available in thepatient's medical record. If you cannot access the medical record, pleasecontact the sending organization for a detailed fax or copy. Exam: Screening mammogram Findings: Digital bilateral full-field screening mammography is performedwith tomosynthesis and interpreted with the aid of computer-aideddetection. Comparison is made with 10/30/2022 and as far back as10/19/2020. Breast parenchyma is composed of scattered fibroglandular densities. Nonew suspicious mass, architectural distortion, or suspiciouscalcifications. Impression: No mammographic evidence of malignancy. BI-RADS 1 - negative Result [facility] Altagracia Smith MD IMG XR PROCEDURES Final Res ult * HIV Screening (12/29/2022) [facility] HIV Screening abstracted Result [facility] Provider HEALTH MAINTENANCE Final Result * Hepatitis C Screening (12/29/2022) [facility] Hepatitis C Screening abstracted Result [facility] Provider HEALTH MAINTENANCE Final Result * Annual BMP Blood Test (12/30/2021) [facility] Annual BMP Blood Test abstracted Result [facility] Provider HEALTH MAINTENANCE Final Result * (ABNORMAL) Lipid panel (12/30/2021) [facility] LDL/HDL Ratio 5(A) 0 - 4 Triglycerides 137 0 - 150 mg/dL Cholesterol 167 0 - 200 mg/dL HDL 34(A) >=40 mg/dL LDL Cholesterol 106(A) 0 - 100 mg/dL Blood Venous blood specimen / Unknown Result [facility] Provider LAB BLOOD ORDERABLES Bethany l Result * Cervical Cancer Screening: HPV (09/02/2020) [facility] Cervical Cancer Screening: HPV abstracted, negative Result [facility] Provider HEALTH MAINTENANCE Final Result from Last 3 Months or Most Recently Relevant to Health Maintenance Care Teams Competitive Athlete Relationship Specialty Start Date End Date Brynn Agarwal MD [address] [place] [id number] PCP - General Internal Medicine 01/25/21
[2025-03-04 09:20] VITALS: BP 152/82; PULSE 68; RESP 16; TEMP 37; O2SAT 97
== END 2025-03-04 09:21 | disposition home or self-care (01) ==
PROVIDERS: Emergency Provider Emergency Medicine; PCP Internal Medicine
DX: M25.872 Other specified joint disorders, left ankle and foot (principal)
CPT/HCPCS: 73610; 99282; 99283

== ENCOUNTER → 2025-03-04 08:31 | Outpatient (BNV) | payer OTHER, SELFPAY | PROVIDERS: Emergency Provider Emergency Medicine; PCP Internal Medicine; Visit Provider Radiology Diagnostic Ultrasound | DX: M25.572 Pain in left ankle and joints of left foot (principal); R60.0 Localized edema | CPT/HCPCS: 73610 ==